=== PATIENT | male | born 1965 | race Caucasian/White ===

== ENCOUNTER 2017-04-14 08:45 | Emergency (ER) | payer MEDICAID ==
[2017-04-14] MEDS ORDERED: NITROGLYCERIN OINT 2% 1 INCH PACKET TP STA (09:13)
[2017-04-14] MEDS ORDERED: NITROGLYCERIN OINT 2% 1 INCH PACKET TP ONE (09:15)
--- NOTE | 2017-04-14 10:24 | ED Physician Chart ---
ED Chief Complaint/HPI - Patient Information Date Seen:: 04/14/17 Time Seen:: 08:50 Chief Complaint:: Facial Redness History of Present Illness:: onset x 2 days of left fanta-oral facial redness and swelling; pt admits to toothaches and oral/gum pain x one week; no trauma, H/As, neck pain, C/P, SOB, Abd. Pain, A/N/V/D/C, fever, chills, or urinary s/s; pt is eating and urinating well; pt last urinated one hour [employer]; pt's last tetanus shot: < 5 years; UTD Allergies:: Allergies Allergy/AdvReac Type Severity Reaction Status Date / Time No Known Allergies Allergy Verified 04/14/17 09:17 Vitals:: Vital Signs - 8 hr 04/14/17 04/14/17 04/14/17 08:51 09:29 10:01 Temp 98.6 F HR 84 88 78 RR 18 16 BP 181/95 181/95 165/101 O2 Sat % 97 96 Historian:: Patient, Family Member Review:: Nurse's Note Reviewed ED Review of Systems - Review of Systems General/Constitutional: No fever, No chills, No weight loss, No weakness, No diaphoresis, No edema, No loss of appetite Skin: No skin lesions, No rash, No bruising Head: No headache, No light-headedness Eyes: No loss of vision, No pain, No diplopia ENT: No earache, No nasal drainage, No sore throat, No tinnitus Neck: No neck pain, No swelling, No thyromegaly, No stiffness, No mass noted Cardio Vascular: No chest pain, No palpitations, No PND, No orthopnea, No edema Pulmonary: No SOB, No cough, No sputum, No wheezing GI: No nausea, No vomiting, No diarrhea, No pain, No melena, No hematochezia, No constipation, No hematemesis G/U: No dysuria, No frequency, No hematuria Musculoskeletal: No bone or joint pain, No back pain, No muscle pain Endocrine: No polyuria, No polydipsia Psychiatric: No prior psych history, No depression, No anxiety, No suicidal ideation Hematopoietic: No bruising, No lymphadenopathy Allergic/Immuno: No urticaria, No angioedema Neurological: No syncope, No focal symptoms, No weakness, No paresthesia, No headache, No seizure, No dizziness, No confusion, No vertigo ED Past Medical History - Past Medical History Obtainable: Yes Past Medical History: HTN Family History: HTN Social History: Non Smoker, No Alcohol, No Drug Use Surgical History: None Psychiatricy History: None Medication: Reviewed ED Physical Exam - Physical Examination General/Constitutional: Awake, Well-developed, well-nourished, Alert, No distress, GCS 15, Non-toxic appearing, Ambulatory Head: Atraumatic Eyes: Lids, conjuctiva normal, PERRL, EOMI Skin: Nl inspection, No rash, No skin lesions, No ecchymosis, Well hydrated, No lymphadenopathy ENMT: External ears, nose nl, TM canals nl, Nasal exam nl, Lips, teeth, gums nl , Oropharynx nl, Tonsils nl Other ENMT comments:: + Left Facial Localized Cellulitis around Left Upper Molar Gingivitis; no abscesses; no FBs; no red steaks; no airway obstruction Neck: Nontender, Full ROM w/o pain, No JVD, No nuchal rigidity, No bruit, No mass, No stridor Respiratory: Nl effort/Exclusion, Clear to Auscultation, No Wheeze/Rhonchi/Rales Cardio Vascular: RRR, No murmur, gallop, rubs, NL S1 S2, Carotid/Femoral/Distal pulses equal bilaterally GI: No tenderness/rebounding/guarding, No organomegaly, No hernia, Normal BS's, Nondistended, No mass/bruits, No McBurney tenderness : No CVA tenderness Extremities: No tenderness or effusion, Full ROM, normal strength in all extremities, No edema, Normal digits & nails Neuro/Psych: Alert/oriented, DTR's symmetric, Normal sensory exam, Normal motor strength, Judgement/insight normal, Mood normal, Normal gait, No focal deficits Misc: Normal back, No paraspinal tenderness ED Septic Shock - . Is Septic Shock (SBP<90, OR Lactate>4 mmol\L) present?: No - <6hrs of presentation: Vital Signs: Vital Signs - 8 hr 04/14/17 04/14/17 04/14/17 08:51 09:29 10:01 Temp 98.6 F HR 84 88 78 RR 18 16 BP 181/95 181/95 165/101 O2 Sat % 97 96 ED Reassessment (Disposition) - Reassessment Reassessment:: pt's final BP is 160/90; pt tolerated po fluids well in ER; pt is asymptomatic upon discharge; Reassessment Condition:: Improved - Diagnosis Diagnosis:: Dx: Facial Cellulitis; Oral Cellulitis; Gingivitis; Hypertension - Aftercare/Follow up Instructions Aftercare/Follow-Up Instructions:: Counseled pt regarding lab results/diagnosis & need follow up, Refer to Discharge Instructions, Counseled pt & family regarding lab results/diagnosis & need follow up Medication Prescribed:: Rx: Keflex 500mg po qid x 10 days; Warm Compresses to affected areas; take all medications as prescribed and be compliant with all prescribed medications - Patient Disposition Discharge/Transfer:: Home Condition at Disposition:: Stable, Improved (RTER prn if existing s/s reoccur and/or get worse and/or any other new s/s occur; ACIs given for all above Dx; Have Blood Pressure re-checked in one day; Refer to Dentist/ENT Specialist/ Clinical Program Consultant [facility]; F/U with PMD in one day or prn; RTER prn if concerned) ED Discharge Plan - Patient Disposition Prescriptions: Cephalexin [Keflex] 500 mg PO QID #40 cap
== END 2017-04-14 10:48 | disposition home or self-care (01) ==
LOC: ER 08:45
DX: L03.211 Cellulitis of face (principal); K05.10 Chronic gingivitis, plaque induced; K12.2 Cellulitis and abscess of mouth; I10 Essential (primary) hypertension
CPT/HCPCS: 99283; 96372; J0696; Z7502